=== PATIENT | female | born 1970 | race Caucasian/White ===

== ENCOUNTER → 2019-03-06 | Outpatient (CLI) | payer BC, OTHER ==
[~2019-03-06] MED LIST: ONDA4TAB11 PO; SUCR1TAB36 PO
--- NOTE | 2019-03-06 14:33 | Diagnostic Imaging Report ---
INDICATION: Routine screening. COMPARISON is made with prior mammogram from 09/13/2017. 2-D and 3-D bilateral screening mammography was performed with CAD. FINDINGS: Both breasts remain heterogeneously dense, limiting the sensitivity of mammography. Circumscribed mass in the inner aspect of the right breast posterior depth appears to be stable and most consistent with a benign etiology. A circumscribed mass in the retroareolar left breast is noted and appears to be slightly larger when compared with prior exam. This is just lateral to the nipple line on the CC view. Further evaluation with ultrasound is recommended. No malignant appearing microcalcifications are seen. Axillae are unremarkable. IMPRESSION: BI-RADS 0 1. Stable circumscribed mass upper inner right breast posterior depth consistent with benign etiology. 2. Enlarging circumscribed density in the retroareolar left breast just lateral to the nipple line. Further evaluation with ultrasound is recommended. Dictated by: Dictated on workstation # [id number]
== END ==
LOC: RAD 07:28
PROVIDERS: ATTEND Nurse Practitioner Family
DX: Z12.31 Encounter for screening mammogram for malignant neoplasm of breast (principal); N63.12 Unspecified lump in the right breast, upper inner quadrant
CPT/HCPCS: 77067

== ENCOUNTER → 2019-03-14 | Outpatient (CLI) | payer BC ==
--- NOTE | 2019-03-14 14:42 | Diagnostic Imaging Report ---
INDICATION: Left breast density. This study is performed for further evaluation. COMPARISON: Correlation is made to the recent screening mammogram from 03/06/2019. TECHNIQUE: Sonographic interrogation of the retroareolar left breast was performed. FINDINGS: At the 3 o'clock location, there is a partially collapsed cyst measuring approximately 11 mm x 4 mm x 16 mm. This likely accounts for the density mammographically. No solid lesion is seen. IMPRESSION: A retroareolar left breast cyst accounts for the mammographic density. The patient may return to routine annual screening mammography. ACR BI-RADS Category 2: Benign findings. Dictated by: Dictated on workstation # [id number]
== END ==
LOC: RAD 12:31
PROVIDERS: ATTEND Nurse Practitioner Family
DX: N60.02 Solitary cyst of left breast (principal)
CPT/HCPCS: 76642